=== PATIENT | male | born 1990 | race African-American/Black ===

== ENCOUNTER 2018-02-24 20:07 | Emergency (ER) | payer OTHER ==
[~2018-02-24] VITALS: Ht 188 cm; Wt 69.4 kg
[2018-02-24] MEDS ORDERED: DILANTIN100 MG (20:19)
[2018-02-24 20:30] LABS: ABSOLUTE LYMPHOCYTES 2.2 thou/uL (0.8-5.3); ABSOLUTE MONOCYTES 0.3 thou/uL (0.0-1.2); ABSOLUTE NEUTROPHILS 1.9 thou/uL (1.6-8.1); BASOPHILS 0.8 %; HEMATOCRIT 38.8 % (42.0-52.0); HEMOGLOBIN 12.9 gm/dL (14.0-18.0); LYMPHOCYTES 50.4 %; MCH 29.2 pg (26.0-34.0); MCHC 33.3 g/dL (28.0-37.0); MCV 87.8 fL (80.0-100.0); MONOCYTES 5.7 %; MPV 8.8 fl. (7.2-11.1); NUCLEATED RBCS 0 /100WBC; PLATELET COUNT* 182 thou/uL (150-400); POLYS 42.1 %; RBC 4.42 mil/uL (4.50-6.00); RDW-CV 13.4 % (10.5-14.5); WBC 4.4 thou/uL (4.0-11.0)
[2018-02-24 20:35] LABS: CALCIUM 8.8 mg/dL (8.5-10.1); CREATININE 1.1 mg/dL (0.6-1.3); POTASSIUM 3.2 mmol/L (3.5-5.1)
[2018-02-24 20:39] LABS: ALBUMIN 3.6 g/dL (3.4-5.0); TOTAL BILIRUBIN 0.3 mg/dL (<0.1-1.0); TOTAL PROTEIN 6.9 g/dL (6.4-8.2)
[2018-02-24] MEDS ORDERED: ZOFRAN ODT4 MG PO (21:40)
[2018-02-24 21:56] VITALS: BP 122/83
== END 2018-02-24 21:57 | disposition home or self-care (01) ==
LOC: M.ERS 20:07
PROVIDERS: Emergency Medicine
DX: R56.9 Unspecified convulsions (principal); R89.2 Abnormal level of other drugs, medicaments and biological substances in specimens from other organs, systems and tissues; Z86.73 Personal history of transient ischemic attack (TIA), and cerebral infarction without residual deficits